=== PATIENT | female | born 1970 | race Caucasian/White ===

== ENCOUNTER 2018-12-26 13:15 | Inpatient (IN) | payer MEDICAID, OTHER, SELFPAY ==
[~2018-12-26] VITALS: Ht 153.2 cm; Wt 95.0 kg
[2018-12-26] MEDS ORDERED: ALBUTEROL/IPRATROPIUM 2.5MG/0.5MG, 3 ML ONE (13:44)
--- NOTE | 2018-12-26 13:50 | NUR ---
PT PRESENTING TO ER FOR SOB X1 MONTH WORSENING TODAY. AUDIBLE WHEEZING HEARD. FORMER SMOKER, LAST 2 YEARS AGO. NO OTHER RESP HX. CONNECTED TO ALL MONITORING, HTN, TACHY AND 86% ON RA. SUP O2 APPLIED. ORDERS RECEIVED. RT PAGED, CURRENTLY AT BEDSIDE FOR TREATMENT. RAD COMPLETED. IV PLACED AND LABS DRAWN. PT MEDICATED PER SEP. AWAITING RESULTS AT THIS TIME. CALL LIGHT WITHIN REACH
[2018-12-26] MEDS ORDERED: ALBUTEROL/IPRATROPIUM 2.5MG/0.5MG, 3 ML NPPB ONE (14:00)
[2018-12-26] MEDS ORDERED: SODIUM CHLORIDE FLUSH 10ML SYR IVF ONE (14:00)
[2018-12-26 14:07] LABS: ALBUMIN 3.7 g/dL (3.4-5.0); ANION GAP 7 mmol/L (5-15); CALCIUM 8.8 mg/dL (8.5-10.1); CHLORIDE 105 mmol/L (98-107)
[2018-12-26 14:12] LABS: ALANINE AMINOTRANSFERASE 50 U/L (12-78); ALKALINE PHOSPHATASE 144 U/L (45-117); BILIRUBIN,TOTAL 0.5 mg/dL (0.2-1.0); CREATININE 0.62 mg/dL (0.55-1.02); TOTAL PROTEIN 8.1 g/dL (6.4-8.2)
[2018-12-26 14:32] LABS: BASOPHILS # (AUTO) 0.12 x10^3/uL (0-0.1); BASOPHILS % (AUTO) 1 % (0-1); EOSINOPHILS # (AUTO) 1.58 x10^3/uL (0-0.4); EOSINOPHILS % (AUTO) 14 % (1-7); LYMPHOCYTES # (AUTO) 2.62 x10^3/uL (1-3.4); LYMPHOCYTES % (AUTO) 24 % (22-44); MD NO; MEAN CORPUSCULAR HEMOGLOBIN 26.6 pg (27.0-34.8); MEAN CORPUSCULAR HGB CONC 31.8 g/dL (32.4-35.8); MEAN CORPUSCULAR VOLUME 83.6 fL (80-100); MEAN PLATELET VOLUME 7.8 fL (7.4-10.4); MONOCYTES # (AUTO) 0.53 x10^3/uL (0.2-0.8); MONOCYTES % (AUTO) 5 % (2-9); NEUTROPHILS # (AUTO) 6.25 x10^3/uL (1.8-6.8); NEUTROPHILS % (AUTO) 56 % (42-75); PLATELET COUNT 399 x10^3/uL (130-400); RED BLOOD COUNT 5.45 x10^6/uL (3.82-5.3); RED CELL DISTRIBUTION WIDTH 15.6 % (9.6-15.2)
--- NOTE | 2018-12-26 15:09 | NUR ---
Report from Topher COTTON
--- NOTE | 2018-12-26 15:17 | NUR ---
Lab at bedside, pt updated on plan (admit) pt states "Do I have to stay, I dont want to miss 2 days of work" Pt educated on reasoning for staying and potential risks of leaving AMA, pt agrees to admit.
[2018-12-26] MEDS ORDERED: LABETALOL 5MG/ML, 20ML IVPush PRN (15:30)
[2018-12-26] MEDS ORDERED: SODIUM CHLORIDE FLUSH 10ML SYR IVF PRN (15:30)
[2018-12-26] MEDS ORDERED: GUAIFENESIN/DM 200-20MG, 10ML UDC PO PRN (15:30)
[2018-12-26] MEDS ORDERED: LIDODERM 5% PATCH TD PRN (15:30)
[2018-12-26] MEDS ORDERED: DOCUSATE 100 MG CAPSULE PO PRN (15:30)
[2018-12-26] MEDS ORDERED: hydrALAzine 20 MG/ML, 1ML IVPush PRN (15:30)
[2018-12-26] MEDS ORDERED: ONDANSETRON ODT 4 MG PO PRN (15:30)
[2018-12-26] MEDS ORDERED: ACETAMINOPHEN 325 MG TABLET PO PRN (15:30)
[2018-12-26 15:39] LABS: TROPONIN I 0.067 ng/mL (0.000-0.045)
--- NOTE | 2018-12-26 15:39 | NUR ---
Hospitalist requesting pt to be kept in Ed until CT scan complete, states it does not have to be ready, just com plete.
--- NOTE | 2018-12-26 15:43 | NUR ---
Report to Laney COTTON, pt to go to CT then be transported to floor.
[2018-12-26 15:59] LABS: HEMOGLOBIN A1C 6.5 % (4.2-6.3)
[2018-12-26] MEDS: DOXYCYCLINE 100 MG in DEXTROSE 5% 250 ML IV SCH (16:47)
--- NOTE | 2018-12-26 17:00 | NUR ---
Pt to CT, senior technical business analyst with pt and will take pt to floor after CTA
[2018-12-26] MEDS ORDERED: OMNIPAQUE 350 MG/ML, 100ML BOTTLE ONE (17:09)
[2018-12-26 17:21] VITALS: BP 157/94
[2018-12-26] MEDS: LISINOPRIL 10 MG TABLET PO SCH (18:35)
[2018-12-26 18:53] VITALS: BP 166/107
[2018-12-26 21:36] LABS: TROPONIN I 0.031 ng/mL (0.000-0.045)
[2018-12-26] MEDS: HEPARIN 5,000 UNITS/ML, 1ML SQ SCH (21:36)
[2018-12-27 00:50] VITALS: BP 131/78
[2018-12-27] MEDS ORDERED: ALBUTEROL/IPRATROPIUM 2.5MG/0.5MG, 3 ML ONE (03:22)
[2018-12-27] MEDS: DOXYCYCLINE 100 MG in DEXTROSE 5% 250 ML IV SCH (04:07)
[2018-12-27] MEDS ORDERED: ALBUTEROL/IPRATROPIUM 2.5MG/0.5MG, 3 ML NPPB PRN (05:00)
[2018-12-27] MEDS: HEPARIN 5,000 UNITS/ML, 1ML SQ SCH ×3 (05:00→20:31)
[2018-12-27 05:18] LABS: BASOPHILS # (AUTO) 0.07 x10^3/uL (0-0.1); BASOPHILS % (AUTO) 1 % (0-1); EOSINOPHILS # (AUTO) 0.05 x10^3/uL (0-0.4); EOSINOPHILS % (AUTO) 0 % (1-7); LYMPHOCYTES % (AUTO) 20 % (22-44); MD NO; MEAN CORPUSCULAR HEMOGLOBIN 26.4 pg (27.0-34.8); MEAN CORPUSCULAR HGB CONC 31.5 g/dL (32.4-35.8); MEAN CORPUSCULAR VOLUME 83.7 fL (80-100); MEAN PLATELET VOLUME 7.3 fL (7.4-10.4); MONOCYTES # (AUTO) 0.89 x10^3/uL (0.2-0.8); MONOCYTES % (AUTO) 8 % (2-9); NEUTROPHILS # (AUTO) 7.77 x10^3/uL (1.8-6.8); NEUTROPHILS % (AUTO) 71 % (42-75); PLATELET COUNT 381 x10^3/uL (130-400); RED BLOOD COUNT 5.48 x10^6/uL (3.82-5.3); RED CELL DISTRIBUTION WIDTH 15.7 % (9.6-15.2)
[2018-12-27 05:32] LABS: CHLORIDE 105 mmol/L (98-107)
[2018-12-27 05:44] LABS: ANION GAP 6 mmol/L (5-15); CALCIUM 8.6 mg/dL (8.5-10.1); CHOL/HDL RATIO 3.9; CHOLESTEROL, TOTAL 181 mg/dL (140-239); HDL CHOL % 26 % (28-40); HDL CHOLESTEROL (DIRECT) 47 mg/dL (40-60); LDL CHOLESTEROL,CALCULATED 112 mg/dL (54-169); LDL/HDL RATIO 2.4 (0.5-3.0); TRIGLYCERIDES 109 mg/dL (50-200); VLDL CHOLESTEROL 22 mg/dL (0-25)
[2018-12-27] MEDS: ALBUTEROL/IPRATROPIUM 2.5MG/0.5MG, 3 ML NPPB SCH ×4 (06:40→20:20)
[2018-12-27 07:09] VITALS: BP 174/100
[2018-12-27] MEDS: LISINOPRIL 10 MG TABLET PO SCH (08:37)
[2018-12-27] MEDS: BUDESONIDE 0.5 MG/2 ML INHA INH SCH ×2 (10:38→20:20)
[2018-12-27] MEDS: methylPREDNISolone SOD SUCC 125 MG/2 ML IV SCH ×2 (12:00→20:31)
[2018-12-27 12:33] VITALS: BP 148/88
[2018-12-27 18:58] VITALS: BP 149/73
[2018-12-27] MEDS: DOXYCYCLINE 100MG TABLET PO SCH (20:31)
[2018-12-28 00:19] VITALS: BP 168/104
[2018-12-28 03:53] LABS: MICROSCOPIC NOT IND
[2018-12-28 03:55] LABS: CULTURE INDICATED? NO
[2018-12-28 04:04] LABS: AMPHETAMINE SCREEN, URINE Positive (Negative); BARBITURATE SCREEN, URINE Negative (Negative); BENZODIAZEPINE SCREEN, URINE Negative (Negative); CANNABINOID SCREEN, URINE Negative (Negative); COCAINE SCREEN, URINE Negative (Negative); METHADONE SCREEN, URINE Negative (Negative); OPIATE SCREEN, URINE Negative (Negative)
[2018-12-28] MEDS: HEPARIN 5,000 UNITS/ML, 1ML SQ SCH ×3 (04:40→20:43)
[2018-12-28] MEDS: methylPREDNISolone SOD SUCC 125 MG/2 ML IV SCH ×3 (04:40→20:43)
[2018-12-28 06:38] LABS: BASOPHILS # (AUTO) 0.01 x10^3/uL (0-0.1); BASOPHILS % (AUTO) 0 % (0-1); EOSINOPHILS % (AUTO) 0 % (1-7); LYMPHOCYTES % (AUTO) 13 % (22-44); MD NO; MEAN CORPUSCULAR HEMOGLOBIN 26.7 pg (27.0-34.8); MEAN CORPUSCULAR HGB CONC 31.7 g/dL (32.4-35.8); MEAN CORPUSCULAR VOLUME 84.2 fL (80-100); MEAN PLATELET VOLUME 7.3 fL (7.4-10.4); MONOCYTES % (AUTO) 1 % (2-9); NEUTROPHILS # (AUTO) 8.56 x10^3/uL (1.8-6.8); NEUTROPHILS % (AUTO) 86 % (42-75); PLATELET COUNT 404 x10^3/uL (130-400)
[2018-12-28] MEDS: ALBUTEROL/IPRATROPIUM 2.5MG/0.5MG, 3 ML NPPB SCH ×4 (06:43→18:50)
[2018-12-28] MEDS: BUDESONIDE 0.5 MG/2 ML INHA INH SCH ×2 (06:44→18:50)
[2018-12-28 06:56] LABS: ANION GAP 6 mmol/L (5-15); CALCIUM 8.7 mg/dL (8.5-10.1); CHLORIDE 105 mmol/L (98-107); CREATININE 0.51 mg/dL (0.55-1.02)
[2018-12-28 07:12] VITALS: BP 173/109
[2018-12-28] MEDS: DOXYCYCLINE 100MG TABLET PO SCH ×2 (08:12→20:43)
[2018-12-28] MEDS: LISINOPRIL 10 MG TABLET PO SCH (08:12)
[2018-12-28 14:12] VITALS: BP 122/87
[2018-12-28 19:45] VITALS: BP 134/74
[2018-12-29 01:32] VITALS: BP 155/94
[2018-12-29] MEDS: methylPREDNISolone SOD SUCC 125 MG/2 ML IV SCH (04:38)
[2018-12-29] MEDS: HEPARIN 5,000 UNITS/ML, 1ML SQ SCH (04:38)
[2018-12-29 07:14] VITALS: BP 178/97
[2018-12-29] MEDS: ALBUTEROL/IPRATROPIUM 2.5MG/0.5MG, 3 ML NPPB SCH ×3 (07:30→13:50)
[2018-12-29] MEDS: BUDESONIDE 0.5 MG/2 ML INHA INH SCH (07:30)
[2018-12-29] MEDS: LISINOPRIL 10 MG TABLET PO SCH (08:02)
[2018-12-29] MEDS: DOXYCYCLINE 100MG TABLET PO SCH (08:02)
[2018-12-29] MEDS ORDERED: LISI-167 PO (11:53)
[2018-12-29] MEDS ORDERED: DOXY100T PO (11:53)
[2018-12-29] MEDS ORDERED: METH4TAB2 PO (11:53)
[2018-12-29] MEDS ORDERED: BUDE10.2 PO (11:53)
[2018-12-29] MEDS ORDERED: ALBU18HF PO (11:53)
[2018-12-29] MEDS ORDERED: METF10007 PO (11:57)
[2018-12-29] MEDS ORDERED: ATOR40TA78 PO (11:57)
== END 2018-12-29 14:47 | disposition home or self-care (01) | DRG 280 ==
LOC: ED 14:23 → EDIP 15:02 → 4EST 17:12
PROVIDERS: ADMIT Internal Medicine; ATTEND Internal Medicine
DX: I21.A1 Myocardial infarction type 2 (principal); J96.02 Acute respiratory failure with hypercapnia; J96.01 Acute respiratory failure with hypoxia; I50.33 Acute on chronic diastolic (congestive) heart failure; J44.1 Chronic obstructive pulmonary disease with (acute) exacerbation; R65.10 Systemic inflammatory response syndrome (SIRS) of non-infectious origin without acute organ dysfunction; Z68.41 Body mass index [BMI] 40.0-44.9, adult; I11.0 Hypertensive heart disease with heart failure; F15.10 Other stimulant abuse, uncomplicated; E66.01 Morbid (severe) obesity due to excess calories; I16.0 Hypertensive urgency; Z96.649 Presence of unspecified artificial hip joint; Z87.891 Personal history of nicotine dependence
CPT/HCPCS: 36415; 36600; 99285; J7620; J7626; 71045; 71275; 80048; 80053; 80061; 80307; 81003; 82803; 83036; 83605; 83880; 84484; 84703; 85025; 87040; 93005; 93306; 94640; 96374; G0378; J1644; J7060; Q9967; J0360; J2930; J7512